=== PATIENT | male | born 1965 | race Caucasian/White ===

== ENCOUNTER 2018-11-15 13:30 | Emergency (ER) | payer BC | END 2018-11-15 13:41 | disposition left against medical advice (07) | LOC: UCEAST 13:30 | DX: T14.8XXA Other injury of unspecified body region, initial encounter (principal); W57.XXXA Bitten or stung by nonvenomous insect and other nonvenomous arthropods, initial encounter; Y92.9 Unspecified place or not applicable; Z53.21 Procedure and treatment not carried out due to patient leaving prior to being seen by health care provider ==

== ENCOUNTER 2019-04-28 18:13 | Emergency (ER) | payer BC ==
[2019-04-28 18:45] VITALS: BP 130/87
--- NOTE | 2019-04-28 18:48 | UC ---
Laceration HPI - HPI Summary HPI Summary: 53 yo male presents with LEFT prieto laceration. He tells me that about 1 hour [employer] he dropped a metal pipe on his left prieto and sustained a laceration to the area. Bandaged the area and came to . He states his last tetanus shot was within the last 2 years. Ambulating without pain - History Of Current Complaint Chief Complaint: UCLowerExtremity Stated Complaint: LEG LACERATION Time Seen by Provider: 04/28/19 18:47 Hx Obtained From: Patient Laceration Location: Leg Mechanism Of Injury: Blunt Trauma Onset/Duration: Sudden Onset Severity: Moderate Pain Intensity: 7 Pain Scale Used: 0-10 Numeric - Allergies/Home Medications Allergies/Adverse Reactions: Allergies Allergy/AdvReac Type Severity Reaction Status Date / Time lisinopril Allergy muscle Verified 04/28/19 18:45 aches antihistamines Allergy Unknown Uncoded 10/03/16 13:09 Reaction Details Home Medications: Home Medications Acetaminophen [Acetaminophen Extra Strength] 1,000 mg PO DAILY 04/28/19 [ History Confirmed 04/28/19] PMH/Surg Hx/FS Hx/Imm Hx Endocrine History: Dyslipidemia Cardiovascular History: Hypertension Psychological History: Anxiety, Depression - Surgical History Surgical History: None - Family History Known Family History: Positive: None, Cardiac Disease Family History: no cardiovascular issues reported in family lineage - Social History Alcohol Use: Daily Alcohol Amount: 2-3 BEERS/NIGHT Substance Use Type: None Smoking Status (MU): Never Smoked Tobacco Type: Cigars Review of Systems All Other Systems Reviewed And Are Negative: No Constitutional: Positive: Negative Skin: Positive: Other - Laceration left prieto Respiratory: Positive: Negative Cardiovascular: Positive: Negative Neurological: Positive: Negative Psychological: Positive: Negative Physical Exam - Summary Physical Exam Summary: GENERAL: NAD. WDWN. No pain distress. SKIN: LEFT PRIETO: mid leg with 5.0cm linear laceration with a V shaped end medially. Muscle tissue visible, but no appreciable tendon damage. No bony involvement. NECK: Supple. Nontender. No lymphadenopathy. CHEST: No accessory muscle use. Breathing comfortably and in no distress. CV: Pulses intact. Cap refill <2seconds MSK: FROM at left ankle and moves all toes with intact strength NEURO: Alert. PSYCH: Age appropriate behavior. Triage Information Reviewed: Yes Vital Signs: Initial Vital Signs Temp 98.3 F 04/28/19 18:40 Pulse 89 04/28/19 18:40 Resp 16 04/28/19 18:40 BP 130/87 04/28/19 18:40 Pulse Ox 96 04/28/19 18:40 Vital Signs Reviewed: Yes Laceration Repair - Laceration Repair 1 Description: Linear Laceration Size After Repair: Length (cm) - 5.0 Anesthesia Used: 2.0% Lido Irrigation With Pressure Irrigation Device: Yes Closure Material: Sutures - #7 Closure Method: Single Layer Suture Of: Skin Suture Type: Prolene - 4-0 Laceration Course/Dx - Course/Dx Course Of Treatment: The procedure was explained to the pt and all questions were answered. A time out was performed, witnessed, and signed. The area was irrigated with 250mL sterile saline. 4mL of 2% lidocaine without epi was administered and good anesthetization was achieved. In the usual sterile fashion, THREE 4-0 prolene horizontal mattress sutures were placed and FOUR interrupted sutures were placed. Homeostasis achieved. The wound was bandaged with telfa. Pt tolerated procedure well. Will place him on keflex given dirty wound. - Differential Dx - Laceration/Wound Differental Diagnoses: Abrasion - Diagnosis Provider Diagnosis: Laceration of left leg Discharge ED - Sign-Out/Discharge Documenting (check all that apply): Patient Departure All imaging exams completed and their final reports reviewed: No Studies - Discharge Plan Condition: Stable Disposition: HOME Prescriptions: Cephalexin CAP* [Keflex CAP*] 500 mg PO TID #15 cap Patient Education Materials: Care For Your Stitches (DC), Laceration (ED) Referrals: Sam Weiss MD [Primary Care Provider] - Additional Instructions: If you develop a fever, shortness of breath, chest pain, new or worsening symptoms - please call your PCP or go to the ED immediately. Your blood pressure was high at todays visit. Please see your primary provider within 4 weeks for recheck and re-evaluation. 1) Please keep the area bandage, clean, dry, and intact for the next 24- 48hours. Then change the bandage daily until sutures are removed. 2) If you develop a fever, colored or thick discharge, increased pain or swelling - please call your PCP or return for a wound check. 3) Please return in 10 days to have your SEVEN sutures removed. - Billing Disposition and Condition Condition: STABLE Disposition: Home
[2019-04-28] MEDS ORDERED: Lidocaine 2% PF * 5 ML VIAL INJ ONE (18:57)
== END 2019-04-28 19:57 | disposition home or self-care (01) ==
LOC: UCEAST 18:13
DX: S81.812A Laceration without foreign body, left lower leg, initial encounter (principal); I10 Essential (primary) hypertension; Z88.8 Allergy status to other drugs, medicaments and biological substances; W20.8XXA Other cause of strike by thrown, projected or falling object, initial encounter; Y92.9 Unspecified place or not applicable
CPT/HCPCS: 12002; 99212; G0463